=== PATIENT | female | born 1970 | race Caucasian/White ===

== ENCOUNTER 2016-11-18 15:33 | Outpatient (CLI) | payer OTHER ==
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
== END 2016-11-18 15:34 ==
LOC: RAD 15:33
PROVIDERS: ATTEND Physician Assistant
DX: M25.511 Pain in right shoulder (principal); S49.91XA Unspecified injury of right shoulder and upper arm, initial encounter; Y93.9 Activity, unspecified; Y99.9 Unspecified external cause status
CPT/HCPCS: 73030